=== PATIENT | male | born 1980 | race Caucasian/White ===

== ENCOUNTER 2016-06-30 23:24 | Emergency (ER) | payer MEDICAID ==
[2016-07-01 00:16] LABS: BASOPHILS 0.2 % (0.0-2.0); HEMOGLOBIN 15.6 g/dL (13.5-17.5); IMMATURE GRANULOCYTES 0.4 % (0-5); LYMPHOCYTES 26.9 % (15-50); MCH 33.5 pg (26.0-34.0); MCHC 33.9 g/dL (31.0-37.0); MCV 98.7 fL (80.0-100.0); MEAN PLATELET VOLUME 9.8 fL (7.4-10.4); MONOCYTES 5.8 % (2-11); NEUTROPHILS 62.7 % (40-80); PLATELET COUNT 155 10x3/uL (130-400); RBC 4.66 10x6/uL (4.20-6.10); RDW 12.9 % (11.5-14.5); WBC 8.3 10x3/uL (4.8-10.8)
== END 2016-07-01 02:23 | disposition home or self-care (01) ==
LOC: D.ER 23:24
PROVIDERS: Family Medicine
DX: K29.00 Acute gastritis without bleeding (principal); M54.5 Low back pain; F17.200 Nicotine dependence, unspecified, uncomplicated; I10 Essential (primary) hypertension

== ENCOUNTER 2016-08-09 01:16 | Emergency (ER) | payer MEDICAID | END 2016-08-09 01:50 | disposition home or self-care (01) | LOC: D.ER 01:16 | DX: G43.909 Migraine, unspecified, not intractable, without status migrainosus (principal); F17.200 Nicotine dependence, unspecified, uncomplicated; I10 Essential (primary) hypertension ==

== ENCOUNTER 2017-04-11 21:42 | Emergency (ER) | payer MEDICAID ==
[2017-04-11 22:36] LABS: BASOPHILS 0.1 % (0-2); EOSINOPHILS 0 % (0-7); HEMATOCRIT 48.2 % (42.0-54.0); HEMOGLOBIN 16.6 g/dL (13.5-17.5); IMMATURE GRANULOCYTES 0.1 % (0-5); LYMPHOCYTES 7.3 % (15-50); MCH 33.8 pg (26.0-34.0); MCHC 34.4 g/dL (31.0-37.0); MCV 98.2 fL (80.0-100.0); MONOCYTES 4.5 % (2-11); PLATELET COUNT 144 10x3/uL (130-400); RBC 4.91 10x6/uL (4.20-6.10); RDW 12.4 % (11.5-14.5); WBC 10.4 10x3/uL (4.8-10.8)
[2017-04-11 22:57] LABS: ALBUMIN 3.5 g/dL (3.4-5.0); ANION GAP 11.2 mmol/L (8-16); BILIRUBIN - TOTAL 0.47 mg/dL (0.2-1.3); CALCIUM 8.9 mg/dL (8.5-10.1); CARBON DIOXIDE 28.6 mmol/L (21.0-32.0); CREATININE - SERUM 1.4 mg/dL (0.6-1.3); POTASSIUM - SERUM 3.8 mmol/L (3.5-5.1); PROTEIN - SERUM 7.8 g/dL (6.4-8.2)
[2017-04-11 22:58] LABS: APPEARANCE CLEAR (CLEAR); BILIRUBIN NEGATIVE (NEGATIVE); COLOR YELLOW (YELLOW); GLUCOSE NEGATIVE (NEGATIVE); KETONE SMALL mg/dL (NEGATIVE); NITRITE NEGATIVE (NEGATIVE); PROTEIN NEGATIVE (NEGATIVE); UROBILINOGEN NORMAL (NORMAL)
== END 2017-04-12 01:40 | disposition home or self-care (01) ==
LOC: D.ER 21:42
PROVIDERS: Nurse Practitioner Acute Care
DX: K52.9 Noninfective gastroenteritis and colitis, unspecified (principal); I10 Essential (primary) hypertension

== ENCOUNTER 2017-09-09 11:29 | Emergency (ER) | payer MEDICAID | END 2017-09-09 13:46 | disposition home or self-care (01) | LOC: D.ER 11:29 | DX: S60.410A Abrasion of right index finger, initial encounter (principal); X58.XXXA Exposure to other specified factors, initial encounter; Y93.89 Activity, other specified; Y92.89 Other specified places as the place of occurrence of the external cause; I10 Essential (primary) hypertension ==

== ENCOUNTER 2017-11-05 19:23 | Emergency (ER) | payer MEDICARE | END 2017-11-05 21:48 | disposition home or self-care (01) | LOC: D.ER 19:23 | DX: M25.561 Pain in right knee (principal); I10 Essential (primary) hypertension ==

== ENCOUNTER 2018-07-23 18:47 | Emergency (ER) | payer MEDICARE ==
[~2018-07-23] VITALS: Ht 188 cm; Wt 136.8 kg
[2018-07-23 18:49] VITALS: Ht 188 cm; Wt 136.8 kg
[2018-07-23] MEDS ORDERED: BACLOFEN20 M1 PO (21:39)
[2018-07-23] MEDS ORDERED: VOLTAREN75 MG PO (21:39)
[2018-07-23 22:05] VITALS: BP 165/89
== END 2018-07-23 22:07 | disposition home or self-care (01) ==
LOC: D.ER 18:47
DX: M54.5 Low back pain (principal); M62.830 Muscle spasm of back

== ENCOUNTER 2018-09-06 02:47 | Emergency (ER) | payer MEDICARE ==
[~2018-09-06] VITALS: Ht 188 cm; Wt 140.9 kg
[~2018-09-06 02:47] MED LIST: BACLOFEN20 M1 PO; VOLTAREN75 MG PO
[2018-09-06 02:50] VITALS: Ht 188 cm; Wt 140.9 kg
[2018-09-06 03:15] VITALS: BP 154/93
== END 2018-09-06 03:15 | disposition home or self-care (01) ==
LOC: D.ER 02:47
DX: G43.009 Migraine without aura, not intractable, without status migrainosus (principal)

== ENCOUNTER 2018-10-09 21:46 | Emergency (ER) | payer MEDICARE ==
[~2018-10-09] VITALS: Ht 188 cm; Wt 134.1 kg
[2018-10-09 21:48] VITALS: Ht 188 cm; Wt 134.1 kg
[2018-10-09] MEDS ORDERED: ULTRAM50 MG PO (21:49)
[2018-10-09] MEDS ORDERED: LIPITOR20 MG PO (21:50)
[2018-10-09] MEDS ORDERED: LISINOPRIL10 MG PO (21:50)
[2018-10-09 22:28] LABS: BASOPHILS 0.2 % (0-2); EOSINOPHILS 1.8 % (0-7); HEMATOCRIT 49.9 % (42.0-54.0); HEMOGLOBIN 17.7 g/dL (13.5-17.5); IMMATURE GRANULOCYTES 0.2 % (0-5); LYMPHOCYTES 28.6 % (15-50); MCHC 35.5 g/dL (31.0-37.0); MCV 95.8 fL (80.0-100.0); MEAN PLATELET VOLUME 9.4 fL (7.4-10.4); MONOCYTES 3.5 % (2-11); NEUTROPHILS 65.7 % (40-80); RBC 5.21 10x6/uL (4.20-6.10); RDW 12.5 % (11.5-14.5); WBC 8.3 10x3/uL (4.8-10.8)
[2018-10-09 22:32] LABS: PLATELET COUNT 182 10x3/uL (130-400)
[2018-10-09 22:33] LABS: APPEARANCE HAZY (CLEAR); COLOR RED (YELLOW); GLUCOSE NEGATIVE (NEGATIVE); KETONE SMALL mg/dL (NEGATIVE); NITRITE NEGATIVE (NEGATIVE); PROTEIN 2+ mg/dL (NEGATIVE); UROBILINOGEN NORMAL (NORMAL)
[2018-10-09 22:34] LABS: BILIRUBIN NEGATIVE (NEGATIVE)
[2018-10-09 22:35] LABS: BACTERIA MODERATE /hpf (NONE SEEN); RED CELLS - URINE >50 /hpf (0-5); WHITE CELLS - URINE 0-5 /hpf (0-5)
[2018-10-09 22:39] LABS: APTT 34.9 SECONDS (22.8-39.4); INR 1.08 (0.85-1.17); PROTIME 13.5 SECONDS (11.6-15.0)
[2018-10-09 22:41] LABS: ALBUMIN 3.7 g/dL (3.4-5.0); ALKALINE PHOSPHATASE 115 U/L (46-116); ALT (SGPT) 29 U/L (10-68); CALC OSMOLALITY 267 mosm/kg (275-300); CALCIUM 9.2 mg/dL (8.5-10.1); CARBON DIOXIDE 26.9 mmol/L (21.0-32.0); CHLORIDE - SERUM 98 mmol/L (98-107); CREATININE - SERUM 1.1 mg/dL (0.6-1.3); GLUCOSE 93 mg/dL (74-106); POTASSIUM - SERUM 4.1 mmol/L (3.5-5.1); PROTEIN - SERUM 8.2 g/dL (6.4-8.2); SODIUM 134 mmol/L (136-145); UREA NITROGEN 12 mg/dL (7-18); eGFR NON AFRICAN AMERICAN 79 mL/min (90-120)
[2018-10-09] MEDS ORDERED: CIPRO500 MG PO (23:46)
[2018-10-10 00:02] VITALS: BP 146/90
== END 2018-10-10 00:03 | disposition home or self-care (01) ==
LOC: D.ER 21:46
PROVIDERS: Emergency Medicine
DX: R31.9 Hematuria, unspecified (principal)

== ENCOUNTER → 2019-02-17 14:44 | Outpatient (CLI) | payer MEDICARE ==
[2018-10-09 21:48] VITALS: BMI 37.9
[~2019-02-17 14:44] MED LIST changes: +CIPRO500 MG PO; +LIPITOR20 MG PO; +LISINOPRIL10 MG PO; +ULTRAM50 MG PO
== END | disposition home or self-care (01) ==
LOC: D.RAD 14:44
PROVIDERS: ATTEND Pain Medicine Interventional Pain Medicine
DX: M47.897 Other spondylosis, lumbosacral region (principal); M54.5 Low back pain; M25.561 Pain in right knee